=== PATIENT | male | born 1975 | race Asian ===

== ENCOUNTER 2025-05-12 06:21 | Day surgery (SDC) | payer OTHER, SELFPAY | END 2025-05-12 10:46 | disposition home or self-care (01) | LOC: GI 06:21 | PROVIDERS: ATTENDING PHYSICIAN Internal Medicine | DX: Z12.11 Encounter for screening for malignant neoplasm of colon (principal); K64.8 Other hemorrhoids; K57.30 Diverticulosis of large intestine without perforation or abscess without bleeding; D12.5 Benign neoplasm of sigmoid colon; K63.5 Polyp of colon; D18.09 Hemangioma of other sites | CPT/HCPCS: 45385; 45380; 88305 ==